=== PATIENT | female | born 1995 | race African-American/Black ===

== ENCOUNTER → 2016-11-01 | Outpatient (CLI) | payer MEDICAID ==
--- NOTE | 2016-11-01 09:36 | RADIOLOGY REPORT (SQ) ---
EXAM DESCRIPTION: KUB COMPLETED DATE/TIME: 11/01/2016 9:18 am REASON FOR STUDY: CONSTIPATION, UNSPECIFIED K59.00 CONSTIPATION, UNSPECIFIED COMPARISON: CT abdomen pelvis 09/20/2015 Abdominal ultrasound 07/20/2015 NUMBER OF VIEWS: One view. TECHNIQUE: Supine radiographic image of the abdomen acquired. LIMITATIONS: None. FINDINGS: BOWEL GAS PATTERN: Large amount of stool in the ascending and transverse colon. Otherwise unremarkable bowel gas pattern CALCIFICATIONS: No suspicious calcifications. SOFT TISSUES: No gross mass or suggestion of organomegaly. HARDWARE: Clips right upper quadrant post cholecystectomy BONES: No acute fracture. No worrisome bone lesions. OTHER: No other significant finding. IMPRESSION: Large amount of stool in the ascending and transverse colon. Otherwise unremarkable bow el gas pattern TECHNICAL DOCUMENTATION: JOB ID: [id number] Event [employer]- All Rights Reserved
== END ==
LOC: OD 09:07
PROVIDERS: ATTEND Physician Assistant
DX: K59.00 Constipation, unspecified (principal)
CPT/HCPCS: 74000

== ENCOUNTER 2017-08-29 16:49 | Emergency (ER) | payer MEDICAID ==
[2017-08-29 17:05] VITALS: BP 115/76
== END 2017-08-29 18:17 | disposition left against medical advice (07) ==
LOC: ER 16:49
DX: Z53.21 Procedure and treatment not carried out due to patient leaving prior to being seen by health care provider (principal)

== ENCOUNTER 2018-02-27 20:52 | Emergency (ER) | payer SELFPAY ==
[2018-02-27 21:02] VITALS: BP 118/76
[2018-02-27] MEDS ORDERED: IBUPROFEN 600 MG TABLET PO ONE (23:30)
--- NOTE | 2018-02-27 23:46 | ER Document Report ---
ED GI/ - General Chief Complaint: Abdominal Pain Stated Complaint: UPPER ABDOMINAL PAIN, TROUBLE BREATHING Time Seen by Provider: 02/27/18 23:25 Mode of Arrival: Ambulatory Information source: Patient TRAVEL OUTSIDE OF THE [place] IN LAST 30 DAYS: No - HPI Patient complains to provider of: Abdominal pain Onset: Yesterday Timing/Duration: Intermittent Quality of pain: Achy Severity at maximum: Moderate Severity in ED: Moderate Pain Level: 3 Location: RUQ Vaginal bleeding (Compared to normal period): None Associated symptoms: None Exacerbated by: Denies Relieved by: Denies Similar symptoms previously: No Recently seen / treated by doctor: Yes Notes: 02/28/18 00:37 Patient is a 23-year-old female presenting to the emergency room today complaining of 2-day history of right upper quadrant pain, she reports some nausea with an episode of vomiting yesterday, she denies a fever, no diarrhea, no dysuria or hematuria, she saw her primary care provider yesterday and was told that she had a very mild elevation of her liver enzymes, has a history of a cholecystectomy in 2016 - Related Data Allergies/Adverse Reactions: No Known Allergies Allergy (Unverified 06/07/15 08:09) Past Medical History - General Information source: Patient - Social History Smoking Status: Never Smoker Family History: Reviewed & Not Pertinent Patient has suicidal ideation: No Patient has homicidal ideation: No - Past Medical History Cardiac Medical History: Denies: Hx Coronary Artery Disease, Hx Heart Attack, Hx Hypertension Pulmonary Medical History: Denies: Hx Asthma, Hx Bronchitis, Hx COPD, Hx Pneumonia Neurological Medical History: Denies: Hx Cerebrovascular Accident, Hx Seizures Renal/ Medical History: Denies: Hx Peritoneal Dialysis Musculoskeletal Medical History: Denies Hx Arthritis Past Surgical History: Reports: Hx Cholecystectomy, Hx Tonsillectomy - Immunizations Hx Diphtheria, Pertussis, Tetanus Vaccination: Yes Review of Systems - Review of Systems Constitutional: No symptoms reported EENT: No symptoms reported Cardiovascular: No symptoms reported Respiratory: No symptoms reported Gastrointestinal: See HPI Genitourinary: No symptoms reported Female Genitourinary: No symptoms reported Musculoskeletal: No symptoms reported Skin: No symptoms reported Hematologic/Lymphatic: No symptoms reported Neurological/Psychological: No symptoms reported -: Yes All other systems reviewed and negative Physical Exam - Vital signs Vitals: Temp Pulse Resp BP Pulse Ox 98.8 F 78 18 118/76 100 02/27/18 20:59 02/27/18 20:59 02/27/18 20:59 02/27/18 20:59 02/27/18 20:59 Interpretation: Normal - General General appearance: Appears well, Alert - HEENT Head: Normocephalic, Atraumatic Eyes: Normal Pupils: PERRL - Respiratory Respiratory status: No respiratory distress Chest status: Nontender Breath sounds: Normal Chest palpation: Normal - Cardiovascular Rhythm: Regular Heart sounds: Normal auscultation Murmur: No - Abdominal Inspection: Normal Distension: No distension Bowel sounds: Normal Tenderness: Tender - Mild right upper quadrant tenderness Organomegaly: No organomegaly - Back Back: Normal, Nontender - Extremities General upper extremity: Normal inspection, Nontender, Normal color, Normal ROM , Normal temperature General lower extremity: Normal inspection, Nontender, Normal color, Normal ROM , Normal temperature, Normal weight bearing. No: Db's sign - Neurological Neuro grossly intact: Yes Cognition: Normal Orientation: AAOx4 [place] Coma Scale Eye Opening: Spontaneous [place] Coma Scale Verbal: Oriented Alex Coma Scale Motor: Obeys Commands [place] Coma Scale Total: 15 Speech: Normal Motor strength normal: LUE, RUE, LLE, RLE Sensory: Normal - Psychological Associated symptoms: Normal affect, Normal mood - Skin Skin Temperature: Warm Skin Moisture: Dry Skin Color: Normal Course - Re-evaluation Re-evalutation: 02/28/18 00:56 Notified by nursing staff that patient eloped from the department prior to receiving her results - Vital Signs Vital signs: Temp Pulse Resp BP Pulse Ox 98.8 F 78 18 118/76 100 02/27/18 20:59 02/27/18 20:59 02/27/18 20:59 02/27/18 20:59 02/27/18 20:59 - Laboratory Result Diagrams: 02/27/18 21:42 02/27/18 21:42 Laboratory results interpreted by me: 02/27/18 02/27/18 02/27/18 21:42 21:42 21:42 Hgb 9.5 L Hct 28.6 L MCV 56 L MCH 18.6 L RDW 45.9 H Plt Count 556 H Eosinophils % (Manual) 10 H Metamyelocytes % 1 H Absolute Eos (Manual) 0.8 H Creatinine 0.47 L Total Bilirubin 2.3 H Direct Bilirubin 0.7 H AST 52 H ALT 53 H Urine Blood SMALL H Urine Urobilinogen 4.0 H Ur Leukocyte Esterase MODERATE H Discharge - Discharge Clinical Impression: Abdominal pain Qualifiers: Abdominal location: right upper quadrant Qualified Code(s): R10.11 - Right upper quadrant pain Disposition: ELOPED Referrals: AUGUSTO NIXON MD [Primary Care Provider] - Follow up as needed
[2018-02-27 23:52] LABS: HEMATOCRIT 28.6 % (36.0-47.0); HEMOGLOBIN 9.5 g/dL (12.0-15.5); MEAN CORPUSCULAR HEMOGLOBIN 18.6 pg (27.0-33.4); MEAN CORPUSCULAR HGB CONC 33.3 g/dL (32.0-36.0); PLATELET COUNT 556 10^3/uL (150-450); RED BLOOD COUNT 5.12 10^6/uL (3.72-5.28); WHITE BLOOD COUNT 7.9 10^3/uL (4.0-10.5)
[2018-02-27 23:54] LABS: RED CELL DISTRIBUTION WIDTH 45.9 % (11.5-14.0)
[2018-02-28 00:12] LABS: ABSOLUTE LYMPHOCYTES# (MANUAL) 2.1 10^3/uL (0.5-4.7); ABSOLUTE MONOCYTES # (MANUAL) 0.3 10^3/uL (0.1-1.4); ABSOLUTE NEUTROPHILS# (MANUAL) 4.7 10^3/uL (1.7-8.2); BASOPHILS % (MANUAL) 0 % (0-2); EOSINOPHILS % (MANUAL) 10 % (0-6); LYMPHOCYTES % (MANUAL) 24 % (13-45); METAMYELOCYTES % (MANUAL) 1 % (0); MONOCYTES % (MANUAL) 4 % (3-13); SEGMENTED NEUTROPHILS % (MAN) 58 % (42-78); TOTAL CELLS COUNTED 100
[2018-02-28 00:15] LABS: ANISOCYTOSIS 4+; APPEARANCE,URINE CLEAR; BILIRUBIN,URINE NEGATIVE (NEGATIVE); COLOR,URINE YELLOW; GLUCOSE, URINE NEGATIVE (NEGATIVE); HYPOCHROMASIA 1+; KETONES,URINE NEGATIVE (NEGATIVE); LEUKOCYTE ESTERASE,URINE MODERATE (NEGATIVE); MEAN CORPUSCULAR VOLUME 56 fl (80-97); NITRITE,URINE NEGATIVE (NEGATIVE); PLATELET COMMENT INCREASED; PLATELET LARGE PRESENT; POIKILOCYTOSIS 4+; POLYCHROMASIA SLIGHT; PROTEIN,URINE NEGATIVE (NEGATIVE); SCHISTOCYTES SLIGHT; TEAR DROP CELLS 1+; TOXIC VACUOLATION PRESENT; URINE SPECIFIC GRAVITY 1.009
[2018-02-28 00:16] LABS: OVALOCYTES 4+
[2018-02-28 00:48] LABS: ALANINE AMINOTRANSFERASE 53 U/L (9-52); ALBUMIN 4.3 g/dL (3.5-5.0); ALKALINE PHOSPHATASE 108 U/L (38-126); ANION GAP 11 (5-19); ASPARTATE AMINO TRANSFERASE 52 U/L (14-36); BILIRUBIN,DIRECT 0.7 mg/dL (0.0-0.4); BILIRUBIN,TOTAL 2.3 mg/dL (0.2-1.3); BLOOD UREA NITROGEN 7 mg/dL (7-20); CALCIUM 9.4 mg/dL (8.4-10.2); CARBON DIOXIDE 24 mmol/L (22-30); CHLORIDE 105 mmol/L (98-107); GLUCOSE 92 mg/dL (75-110); LIPASE 101.3 U/L (23-300); POTASSIUM 3.8 mmol/L (3.6-5.0); SODIUM 139.6 mmol/L (137-145); TOTAL PROTEIN 7.7 g/dL (6.3-8.2)
[2018-02-28 13:34] LABS: PATH REVIEW PATHOLOGIST REVIEWED
== END 2018-02-27 23:30 | disposition left against medical advice (07) ==
LOC: ER 20:52
DX: R10.11 Right upper quadrant pain (principal); R11.2 Nausea with vomiting, unspecified; Z90.49 Acquired absence of other specified parts of digestive tract
CPT/HCPCS: 36415; 80053; 81001; 81025; 83690; 85025; 99281

== ENCOUNTER 2018-04-07 19:43 | Emergency (ER) | payer OTHER, BC ==
[2018-04-07 21:02] VITALS: BP 115/59
[2018-04-07] MEDS ORDERED: LIDOCAINE 5% (700 MG) TRANSDERMAL ADH..PATCH TP ONE (22:47)
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
== END 2018-04-07 23:25 | disposition home or self-care (01) ==
LOC: ER 19:43
DX: S13.4XXA Sprain of ligaments of cervical spine, initial encounter (principal); M25.552 Pain in left hip; M54.2 Cervicalgia; R29.898 Other symptoms and signs involving the musculoskeletal system; V43.52XA Car driver injured in collision with other type car in traffic accident, initial encounter
CPT/HCPCS: 99283

== ENCOUNTER 2019-01-29 06:02 | Inpatient (IN) | payer MEDICAID ==
[2019-01-30 10:59] LABS: ABSOLUTE EOSINOPHILS # (AUTO) 0.1 10^3/uL (0.0-0.6); ABSOLUTE LYMPHOCYTES (AUTO) 1.4 10^3/uL (0.5-4.7); ABSOLUTE MONOCYTES (AUTO) 0.7 10^3/uL (0.1-1.4); ABSOLUTE NEUT (AUTO) 7.5 10^3/uL (1.7-8.2); BASOPHILS % (AUTO) 0.3 % (0-2); HEMATOCRIT 31.7 % (36.0-47.0); HEMOGLOBIN 10.8 g/dL (12.0-15.5); LYMPHOCYTES % (AUTO) 14.9 % (13-45); MEAN CORPUSCULAR HEMOGLOBIN 24.8 pg (27.0-33.4); MEAN CORPUSCULAR HGB CONC 34.1 g/dL (32.0-36.0); MEAN CORPUSCULAR VOLUME 73 fl (80-97); MONOCYTES % (AUTO) 6.8 % (3-13); PLATELET COUNT 308 10^3/uL (150-450); RED BLOOD COUNT 4.35 10^6/uL (3.72-5.28); TOTAL CELLS COUNTED % (AUTO) 100 %; WHITE BLOOD COUNT 9.7 10^3/uL (4.0-10.5)
[2019-01-30 11:31] LABS: RED CELL DISTRIBUTION WIDTH 42.2 % (11.5-14.0)
[2019-01-30 11:32] LABS: ANISOCYTOSIS 4+; POIKILOCYTOSIS 4+
[2019-01-30 11:33] LABS: OVALOCYTES 4+; PLATELET COMMENT ADEQUATE; SCHISTOCYTES SLIGHT; TEAR DROP CELLS 1+
[2019-01-30 11:34] LABS: PLATELET LARGE PRESENT
[2019-01-30 12:09] LABS: APPEARANCE,URINE SLIGHTLY-CLOUDY; BILIRUBIN,URINE NEGATIVE (NEGATIVE); COLOR,URINE AMBER; GLUCOSE, URINE NEGATIVE (NEGATIVE); KETONES,URINE TRACE mg/dL (NEGATIVE); LEUKOCYTE ESTERASE,URINE LARGE (NEGATIVE); NITRITE,URINE NEGATIVE (NEGATIVE); PROTEIN,URINE NEGATIVE (NEGATIVE); URINE SPECIFIC GRAVITY 1.013
[2019-01-30 12:28] LABS: URINE AMPHETAMINES SCREEN NEGATIVE; URINE BARBITURATES SCREEN NEGATIVE; URINE BENZODIAZEPINES SCREEN NEGATIVE; URINE COCAINE SCREEN NEGATIVE; URINE MARIJUANA (THC) SCREEN NEGATIVE; URINE METHADONE SCREEN NEGATIVE; URINE PHENCYCLIDINE SCREEN NEGATIVE
[2019-02-02] MEDS ORDERED: CEFAZOLIN SODIUM 2 GM in DEXTROSE 5%-WATER 100 ML IV PRN (05:00)
[2019-02-02] MEDS ORDERED: RINGERS SOLUTION,LACTATED 1,000 ML IV PRN ×2 (05:00→10:38)
[2019-02-02] MEDS ORDERED: LACTATED RINGERS 1000 ML IV PRN (05:00)
[2019-02-02] MEDS ORDERED: LIDOCAINE 0.5% INJ-PF (5 MG/ML) 50 ML SDV SUBCUT PRN (05:00)
[2019-02-02] MEDS ORDERED: OXYTOCIN 10 UNIT/ML VIAL ONE (09:04)
[2019-02-02] MEDS ORDERED: ONDANSETRON HCL INJ/PF 4 MG/2 ML SDV ONE (09:04)
[2019-02-02] MEDS ORDERED: FENTANYL CITRATE INJ/PF 100 MCG/2 ML AMPUL ONE (09:04)
[2019-02-02] MEDS ORDERED: ACETAMINOPHEN 1,000 MG/100 ML RTUPB IV ONE (09:04)
[2019-02-02] MEDS ORDERED: KETOROLAC TROMETHAMINE INJ/PF 30 MG/1 ML SDV ONE (09:04)
[2019-02-02] MEDS ORDERED: SIMETHICONE 80 MG TAB.CHEW PO PRN (10:38)
[2019-02-02] MEDS ORDERED: PROMETHAZINE HCL INJ 25 MG/1 ML VIAL IV PRN (10:38)
[2019-02-02] MEDS ORDERED: OXYTOCIN/NORMAL SALINE 20 UNIT/1,000 ML RTUINJ IV PRN (10:38)
[2019-02-02] MEDS ORDERED: MEASLES,MUMPS&RUBELLA VACC/PF 0.5 ML VIAL SUBCUT PRN (10:38)
[2019-02-02] MEDS ORDERED: ACETAMINOPHEN 325 MG TABLET PO PRN (10:38)
[2019-02-02] MEDS ORDERED: OXYCODONE-ACETAMINOPHEN 5-325 MG TABLET PO PRN (10:38)
[2019-02-02] MEDS ORDERED: DIPH/PERTUSS(ACELL)/TETANUS VAC/PF 0.5 ML SYR (>=10YO) IM PRN (10:38)
[2019-02-02] MEDS ORDERED: HYDROMORPHONE HCL INJ/PF 2 MG/ML AMPULE IV PRN (10:38)
--- NOTE | 2019-02-02 10:40 | PDOC DELIVERY SUMMARY ---
Delivery Summary - Maternal Hx : I HAILEY: 01/30/19 Ruptured Membranes: AROM Fluids: Clear - Delivery Presentation: Vertex Support Person Present: Yes Location: LD : Scheduled Placenta: Within Normal Limits Delivery of Placenta Date: 02/02/19 Delivery of Placenta Time: 10:05 - Infant Assess and Care Baby 1 Delivery of Infant Date: 02/02/19 Delivery of Infant Time: 10:04 Preprinted Number On Band: [id number] Skin to Skin: Yes Skin to Skin (Mins): 6 - Delivery Personnel MD: PATRICIA MCDONALD
--- NOTE | 2019-02-02 10:43 | Operative Report ---
Operative Report DATE OF SURGERY: 02/02/19 PREOPERATIVE DIAGNOSIS: CPD macrosomia POSTOPERATIVE DIAGNOSIS: Same plus baby is direct OP OPERATION: Primary via low transverse uterine incision SURGEON: PATRICIA MCDONALD ANESTHESIA: Spinal TISSUE REMOVED OR ALTERED: Placenta COMPLICATIONS: None ESTIMATED BLOOD LOSS: 400 INTRAOPERATIVE FINDINGS: Baby was 9 pounds 7 ounces directly OP PROCEDURE: Patient was taken to the OR and placed in supine position after her spinal anesthesia. She is prepared and draped in sterile fashion. Edmond was placed for drainage of the bladder. Low transverse incision was made and carried down the level of the fascia. The fascial incision was made with knife and extended bilaterally with curved Issa scissors. The fascia was off the rectus muscles using sharp and blunt dissection. The rectus muscles are in the midline. The peritoneum was entered without incident. Bladder blade was placed in uterine segment was identified. A low transverse incision was made creating a bladder flap. Bladder blade was placed low transverse uterine incision was made with the knife and extended with fingertips. The baby was delivered with some fundal pressure. Mouth and nose were suctioned free. The cord is doubly clamped and cut. Baby is passed off to the utility accounts director in attendance. The placenta was manually extracted with trailing membranes. The uterus was externalized wrapped in a moist lap sponge. Uterine contents wiped free. Uterus was closed with a running locking layer of 0 chromic suture using the second layer to imbricate the first completing a double layer closure of the uterus. The serosa was closed with a running 2-0 chromic stitch. The pelvis was irrigated and suctioned free of fluid the uterus was replaced in the abdomen. The abdominal wall peritoneum was closed with running 2-0 chromic stitch. Fascia was closed with a running 0 Vicryl in 2 segments. Antonietta's layer was brought together with 0 plain gut stitch and the skin was closed with running subcuticular 4-0 undyed Vicryl stitch. The wound was dressed mother and baby did well.
[2019-02-02] MEDS ORDERED: DIPHENHYDRAMINE HCL 50 MG/ML VIAL ONE (11:17)
[2019-02-02 11:27] LABS: HEMATOCRIT 27.2 % (36.0-47.0); HEMOGLOBIN 9.2 g/dL (12.0-15.5); MEAN CORPUSCULAR HEMOGLOBIN 24.7 pg (27.0-33.4); MEAN CORPUSCULAR VOLUME 73 fl (80-97); PLATELET COUNT 306 10^3/uL (150-450); RED BLOOD COUNT 3.74 10^6/uL (3.72-5.28); WHITE BLOOD COUNT 8.9 10^3/uL (4.0-10.5)
[2019-02-02] MEDS ORDERED: DIPHENHYDRAMINE HCL 50 MG/ML VIAL IV ONE ×2 (11:45→13:00)
[2019-02-02 12:27] LABS: RED CELL DISTRIBUTION WIDTH 43.4 % (11.5-14.0)
[2019-02-02] MEDS: OXYCODONE-ACETAMINOPHEN 5-325 MG TABLET PO PRN (13:57)
[2019-02-02] MEDS: DOCUSATE SODIUM 100 MG CAPSULE PO SCH (18:19)
[2019-02-02] MEDS: KETOROLAC TROMETHAMINE INJ/PF 30 MG/1 ML SDV IV SCH (18:19)
[2019-02-03] MEDS: KETOROLAC TROMETHAMINE INJ/PF 30 MG/1 ML SDV IV SCH (02:39)
[2019-02-03] MEDS: OXYCODONE-ACETAMINOPHEN 5-325 MG TABLET PO PRN ×2 (06:13→14:00)
[2019-02-03] MEDS: DOCUSATE SODIUM 100 MG CAPSULE PO SCH ×2 (09:12→17:56)
[2019-02-03] MEDS: PRENATAL VITAMIN W DHA CAPSULE PO SCH (09:12)
[2019-02-03 10:18] LABS: HEMATOCRIT 22.8 % (36.0-47.0); MEAN CORPUSCULAR HGB CONC 33.8 g/dL (32.0-36.0); MEAN CORPUSCULAR VOLUME 74 fl (80-97); PLATELET COUNT 290 10^3/uL (150-450); RED BLOOD COUNT 3.09 10^6/uL (3.72-5.28); WHITE BLOOD COUNT 16.9 10^3/uL (4.0-10.5)
[2019-02-03 10:32] LABS: RED CELL DISTRIBUTION WIDTH 42.4 % (11.5-14.0)
[2019-02-03 10:34] LABS: HEMOGLOBIN 7.7 g/dL (12.0-15.5)
[2019-02-03] MEDS ORDERED: PROMETHAZINE HCL 25 MG TABLET PO ONE (11:30)
--- NOTE | 2019-02-03 12:58 | PDOC PROGRESS REPORT ---
Subjective-OB Progress Note for:: 02/03/19 Subjective: denies sx of anemia, states she is passing gas, c/o nausea. states bleeding and pain doing good Physical Exam (OB) Vital Signs: Temp Pulse Resp BP Pulse Ox 98.0 F 80 18 100/49 L 100 02/03/19 11:20 02/03/19 11:20 02/03/19 11:20 02/03/19 11:20 02/03/19 11:20 Intake & Output 02/02/19 02/03/19 02/04/19 06:59 06:59 06:59 Intake Total 200 Output Total 1750 Balance -1550 Weight 86.183 kg - Dressing Removed: No Incision: Dressing Closure Type: op site - Lochia Lochia Amount: Scant < 10 ml Lochia Color: Rubra/Red - Abdomen Description: Tender, Soft, Round Hernia Present: No Fundal Description: Firm Fundal Height: u/u - u/2 - Extremities Lower extremities: Db's sign - neg Calf: Normal, Nontender Objective-Diagnostic Laboratory: 02/03/19 09:15 02/03/19 02/03/19 06:44 09:15 WBC Cancelled 16.9 H RBC Cancelled 3.09 L Hgb Cancelled 7.7 L Hct Cancelled 22.8 L MCV Cancelled 74 L MCH Cancelled 25.0 L MCHC Cancelled 33.8 RDW Cancelled 42.4 H Plt Count Cancelled 290 Assessment and Plan(PN) - Assessment and Plan (1) Status post primary low transverse section Is this a current diagnosis for this admission?: Yes - Time Spent with Patient Time with patient: Less than 15 minutes Medications reviewed and adjusted accordingly: Yes - Disposition Anticipated Discharge: Home Within: within 48 hours
[2019-02-03] MEDS: IBUPROFEN 800 MG TABLET PO SCH ×2 (17:55→23:13)
[2019-02-04 01:22] LABS: HEMATOCRIT 20.2 % (36.0-47.0); MEAN CORPUSCULAR HGB CONC 32.5 g/dL (32.0-36.0); MEAN CORPUSCULAR VOLUME 74 fl (80-97); PLATELET COUNT 314 10^3/uL (150-450); RED BLOOD COUNT 2.74 10^6/uL (3.72-5.28); WHITE BLOOD COUNT 16.1 10^3/uL (4.0-10.5)
[2019-02-04 01:42] LABS: HEMOGLOBIN 6.6 g/dL (12.0-15.5); RED CELL DISTRIBUTION WIDTH 42.8 % (11.5-14.0)
[2019-02-04] MEDS ORDERED: AMPICILLIN SOD/SULBACTAM 3 GM VIAL IV SCH (06:00)
[2019-02-04] MEDS: IBUPROFEN 800 MG TABLET PO SCH ×4 (06:20→23:19)
[2019-02-04] MEDS: PRENATAL VITAMIN W DHA CAPSULE PO SCH (10:14)
[2019-02-04] MEDS: DOCUSATE SODIUM 100 MG CAPSULE PO SCH ×2 (10:14→17:19)
--- NOTE | 2019-02-04 13:10 | PDOC PROGRESS REPORT ---
Subjective-OB Progress Note for:: 02/04/19 Subjective: 24yo G1 now P1 s/p primary ppd1. Pt. ambulating, and voiding without difficulty. Reports pain well tolerated with medication. No concerns at this time Physical Exam (OB) Vital Signs: Temp Pulse Resp BP Pulse Ox 99.1 F 97 16 116/66 100 02/04/19 11:17 02/04/19 11:17 02/04/19 11:17 02/04/19 11:17 02/04/19 11:17 Intake & Output 02/03/19 02/04/19 02/05/19 06:59 06:59 06:59 Intake Total 200 600 600 Output Total 1750 2700 Balance -1550 -2100 600 Weight 86.183 kg - General General Appearance: Appears well In distress: None - PIH/Pre-Eclampsia DTR's: 1 + Clonus: Negative Headache: Absent Epigastric Pain: No Visual Changes: No - Dressing Removed: No Incision: Dressing Closure Type: op site - Lochia Lochia Amount: Scant < 10 ml Lochia Color: Rubra/Red - Abdomen Description: Tender, Soft, Round Hernia Present: No Fundal Description: Firm, Midline Fundal Height: u/u - u/2 - Respiratory Respiratory Status: No respiratory distress - Extremities Upper extremity: Normal inspection Lower extremities: Normal inspection - Neurological Cognition: Normal Orientation: AAOx4 - Psychological Associated symptoms: Normal affect, Normal mood Objective-Diagnostic Laboratory: 02/04/19 01:11 02/01/19 02/04/19 17:09 01:11 WBC 16.1 H RBC 2.74 L Hgb 6.6 L Hct 20.2 L MCV 74 L MCH 24.0 L MCHC 32.5 RDW 42.8 H Plt Count 314 Blood Type O POSITIVE Antibody Screen NEGATIVE Assessment and Plan(PN) - Assessment and Plan (1) Acute blood loss anemia Is this a current diagnosis for this admission?: Yes Plan: second unit of blood just finished infusion. Will continue to monitor (2) hemorrhage Qualifiers: hemorrhage type: unspecified Qualified Code(s): O72.1 - Other immediate hemorrhage Is this a current diagnosis for this admission?: Yes Plan: blood transfusion completed, increase dietary iron and FeSO4 BID. Continue to monitor (3) Blood transfusion during current hospitalisation Is this a current diagnosis for this admission?: Yes Plan: completed will obtain repeat CBC this afternoon (4) Status post primary low transverse section Is this a current diagnosis for this admission?: Yes Plan: routine pp care - Time Spent with Patient Time with patient: Less than 15 minutes Medications reviewed and adjusted accordingly: Yes - Disposition Anticipated Discharge: Home Within: within 24 hours
[2019-02-04] MEDS: OXYCODONE-ACETAMINOPHEN 5-325 MG TABLET PO PRN (16:04)
[2019-02-04 16:20] LABS: HEMATOCRIT 25.7 % (36.0-47.0); MEAN CORPUSCULAR HEMOGLOBIN 26.2 pg (27.0-33.4); MEAN CORPUSCULAR HGB CONC 33.8 g/dL (32.0-36.0); MEAN CORPUSCULAR VOLUME 77 fl (80-97); PLATELET COUNT 410 10^3/uL (150-450); RED BLOOD COUNT 3.32 10^6/uL (3.72-5.28); RED CELL DISTRIBUTION WIDTH 37.3 % (11.5-14.0)
[2019-02-04 16:42] LABS: HEMOGLOBIN 8.7 g/dL (12.0-15.5)
[2019-02-05] MEDS: IBUPROFEN 800 MG TABLET PO SCH ×2 (06:01→11:54)
[2019-02-05] MEDS: OXYCODONE-ACETAMINOPHEN 5-325 MG TABLET PO PRN (09:59)
[2019-02-05] MEDS: PRENATAL VITAMIN W DHA CAPSULE PO SCH (09:59)
[2019-02-05] MEDS: DOCUSATE SODIUM 100 MG CAPSULE PO SCH (09:59)
--- NOTE | 2019-02-05 11:25 | PDOC PROGRESS REPORT ---
Subjective-OB Progress Note for:: 02/05/19 Subjective: Ready to go home. Physical Exam (OB) Vital Signs: Temp Pulse Resp BP Pulse Ox 98.1 F 81 16 103/53 L 100 02/05/19 07:27 02/05/19 07:27 02/05/19 07:27 02/05/19 07:27 02/05/19 07:27 Intake & Output 02/04/19 02/05/19 02/06/19 06:59 06:59 06:59 Intake Total 600 600 Output Total 2700 Balance -2100 600 - PIH/Pre-Eclampsia DTR's: 1 + Clonus: Negative Headache: Absent Epigastric Pain: No Visual Changes: No - Dressing Removed: No Incision: Dressing Closure Type: op site - Lochia Lochia Amount: Scant < 10 ml Lochia Color: Rubra/Red - Abdomen Description: Soft, Round Hernia Present: No Bowel Sounds: Normoactive Flatus Presence: Present Stool: No Fundal Description: Firm, Midline Fundal Height: u/u - u/2 Objective-Diagnostic Laboratory: 02/04/19 15:59 02/04/19 15:59 WBC 18.0 H RBC 3.32 L Hgb 8.7 L D Hct 25.7 L MCV 77 L MCH 26.2 L MCHC 33.8 RDW 37.3 H Plt Count 410 Assessment and Plan(PN) - Time Spent with Patient Medications reviewed and adjusted accordingly: Yes - Disposition Anticipated Discharge: Home
--- NOTE | 2019-02-05 11:33 | PDOC DISCHARGE SUMMARY ---
Impression - Admit/DC Date/PCP Admission Date/Primary Care Provider: 02/02/19 06:32 PATRICIA MCDONALD MD Discharge Date: 02/05/19 - Discharge Diagnosis (1) Acute blood loss anemia Is this a current diagnosis for this admission?: Yes (2) Blood transfusion during current hospitalisation Is this a current diagnosis for this admission?: Yes (3) hemorrhage Is this a current diagnosis for this admission?: Yes (4) Status post primary low transverse section Is this a current diagnosis for this admission?: Yes - Additional Information Discharge Diet: Regular Discharge Activity: Activity As Tolerated, Balance Activity w/Rest, No Lifting Over 10 Pounds, No Lifting/Push/Pulling, Pelvic Rest, Slowly Increase Activity, No tub bath Referrals: PATRICIA MCDONALD MD [Primary Care Provider] - 02/11/19 11:00 am (PLEASE CALL THE OFFICE FOR ANY QUESTIONS OR CONCERN.) Prescriptions: Oxycodone HCl/Acetaminophen [Percocet 5-325 mg Tablet] 1 tab PO Q4HP PRN #20 tablet PRN Reason: Docusate Sodium [Colace 100 mg Capsule] 100 mg PO BID #30 capsule Ferrous Sulfate 325 mg PO BID #60 tablet. Ibuprofen [Motrin 800 mg Tablet] 800 mg PO Q6 #30 tablet Home Medications: Folic Acid 1 cap PO DAILY 01/30/19 Prenat 115/Iron Fum/Folic/Dss [ 19 Tablet] 1 tab PO DAILY 01/30/19 Docusate Sodium [Colace 100 mg Capsule] 100 mg PO BID #30 capsule 02/05/19 Ferrous Sulfate 325 mg PO BID #60 tablet. 02/05/19 Ibuprofen [Motrin 800 mg Tablet] 800 mg PO Q6 #30 tablet 02/05/19 Oxycodone HCl/Acetaminophen [Percocet 5-325 mg Tablet] 1 tab PO Q4HP PRN #20 tablet 02/05/19 Additional Information: RTC 1 wk at [facility]. HPI Reason(s) for Admission: Onset of Labor, Ceasarean Section-Primary, Obstetric Complications Procedures: Ultrasound Intrapartum Procedure(s): : Low Cervical, Transverse Results Laboratory Results: WBC 18.0 10^3/uL (4.0-10.5) H 02/04/19 15:59 RBC 3.32 10^6/uL (3.72-5.28) L 02/04/19 15:59 Hgb 8.7 g/dL (12.0-15.5) L D 02/04/19 15:59 Hct 25.7 % (36.0-47.0) L 02/04/19 15:59 MCV 77 fl (80-97) L 02/04/19 15:59 MCH 26.2 pg (27.0-33.4) L 02/04/19 15:59 MCHC 33.8 g/dL (32.0-36.0) 02/04/19 15:59 RDW 37.3 % (11.5-14.0) H 02/04/19 15:59 Plt Count 410 10^3/uL (150-450) 02/04/19 15:59 Lymph % (Auto) 14.9 % (13-45) 01/30/19 10:27 Morrill % (Auto) 6.8 % (3-13) 01/30/19 10:27 Eos % (Auto) 1.0 % (0-6) 01/30/19 10:27 Baso % (Auto) 0.3 % (0-2) 01/30/19 10:27 Absolute Neuts (auto) 7.5 10^3/uL (1.7-8.2) 01/30/19 10:27 Absolute Lymphs (auto) 1.4 10^3/uL (0.5-4.7) 01/30/19 10:27 Absolute Monos (auto) 0.7 10^3/uL (0.1-1.4) 01/30/19 10:27 Absolute Eos (auto) 0.1 10^3/uL (0.0-0.6) 01/30/19 10:27 Absolute Basos (auto) 0.0 10^3/uL (0.0-0.2) 01/30/19 10:27 Seg Neutrophils % 77.0 % (42-78) 01/30/19 10:27 Platelet Estimate Cancelled 02/03/19 06:44 Large Platelets PRESENT 01/30/19 10:27 Platelet Comment ADEQUATE 01/30/19 10:27 Poikilocytosis 4+ 01/30/19 10:27 Anisocytosis 4+ 01/30/19 10:27 Microcytosis 2+ 01/30/19 10:27 Tear Drop Cells 1+ 01/30/19 10:27 Ovalocytes 4+ 01/30/19 10:27 Schistocytes SLIGHT 01/30/19 10:27 Urine Color CLARA 01/30/19 10:30 Urine Appearance SLIGHTLY-CLOUDY 01/30/19 10:30 Urine pH 7.0 (5.0-9.0) 01/30/19 10:30 Ur Specific [place] 1.013 01/30/19 10:30 Urine Protein NEGATIVE mg/dL (NEGATIVE) 01/30/19 10:30 Urine Glucose (UA) NEGATIVE mg/dL (NEGATIVE) 01/30/19 10:30 Urine Ketones TRACE mg/dL (NEGATIVE) H 01/30/19 10:30 Urine Blood SMALL (NEGATIVE) H 01/30/19 10:30 Urine Nitrite NEGATIVE (NEGATIVE) 01/30/19 10:30 Urine Bilirubin NEGATIVE (NEGATIVE) 01/30/19 10:30 Urine Urobilinogen 4.0 mg/dL (<2.0) H 01/30/19 10:30 Ur Leukocyte Esterase LARGE (NEGATIVE) H 01/30/19 10:30 Urine WBC (Auto) 35 /HPF 01/30/19 10:30 Urine RBC (Auto) 14 /HPF 01/30/19 10:30 Squamous Epi Cells Auto 2 /HPF 01/30/19 10:30 Urine Mucus (Auto) RARE /LPF 01/30/19 10:30 Urine Ascorbic Acid NEGATIVE (NEGATIVE) 01/30/19 10:30 Urine Opiates Screen NEGATIVE 01/30/19 10:30 Urine Methadone Screen NEGATIVE 01/30/19 10:30 Ur Barbiturates Screen NEGATIVE 01/30/19 10:30 Ur Phencyclidine Scrn NEGATIVE 01/30/19 10:30 Ur Amphetamines Screen NEGATIVE 01/30/19 10:30 U Benzodiazepines Scrn NEGATIVE 01/30/19 10:30 Urine Cocaine Screen NEGATIVE 01/30/19 10:30 U Marijuana (THC) Screen NEGATIVE 01/30/19 10:30 Slides for Path Review Cancelled 02/03/19 06:44 Blood Type O POSITIVE 02/01/19 17:09 Blood Type Confirm O POSITIVE 02/01/19 17:09 Antibody Screen NEGATIVE 02/01/19 17:09 Crossmatch See Detail 02/01/19 17:09 Plan Plan of Treatment: RTC [facility] 1 wk from surgery. Time Spent: Less than 30 Minutes
[2019-02-05 12:51] LABS: HEMATOCRIT 26.1 % (36.0-47.0); HEMOGLOBIN 8.6 g/dL (12.0-15.5); MEAN CORPUSCULAR HEMOGLOBIN 25.7 pg (27.0-33.4); MEAN CORPUSCULAR HGB CONC 33.1 g/dL (32.0-36.0); MEAN CORPUSCULAR VOLUME 77 fl (80-97); PLATELET COUNT 260 10^3/uL (150-450); RED BLOOD COUNT 3.37 10^6/uL (3.72-5.28); RED CELL DISTRIBUTION WIDTH 37.2 % (11.5-14.0); WHITE BLOOD COUNT 15.5 10^3/uL (4.0-10.5)
[2019-02-05 13:21] VITALS: BP 102/57
== END 2019-02-05 14:48 | disposition home or self-care (01) | DRG 787 ==
LOC: 2S 02-02 06:32
PROVIDERS: ADMIT Obstetrics & Gynecology; ATTEND Obstetrics & Gynecology
PROC: 10D00Z1 Extraction of Products of Conception, Low, Open Approach (ICD-10-PCS; principal; 2019-02-02 09:30)
PROC: 30233N1 Transfusion of Nonautologous Red Blood Cells into Peripheral Vein, Percutaneous Approach (ICD-10-PCS; 2019-02-04)
DX: O33.5XX0 Maternal care for disproportion due to unusually large fetus, not applicable or unspecified (principal); O72.1 Other immediate postpartum hemorrhage; D62 Acute posthemorrhagic anemia; O99.02 Anemia complicating childbirth; Z37.0 Single live birth; Z14.8 Genetic carrier of other disease; Z3A.40 40 weeks gestation of pregnancy
CPT/HCPCS: 1961; 36415; 36430; 59025; 80307; 81001; 85025; 85027; 86850; 86900; 86901; 86920; 94799; J0131; J0690; J1200; J1885; J2405; J2590; J3010; J3490; J7060; J7120; P9016

== ENCOUNTER 2019-03-11 21:07 | Emergency (ER) | payer MEDICAID ==
[2019-03-11 21:25] VITALS: BP 104/66
[2019-03-11] MEDS ORDERED: IBUPROFEN 800 MG TABLET PO ONE (21:44)
--- NOTE | 2019-03-11 21:46 | ER Document Report ---
ED Medical Screen (RME) - General Chief Complaint: Abdominal Pain Stated Complaint: RIGHT SIDE ABDOMINAL PAIN Time Seen by Provider: 03/11/19 21:41 Primary Care Provider: MIRNA RIVERA FNP-C [Primary Care Provider] - Follow up as needed Mode of Arrival: Ambulatory Information source: Patient Notes: pt presents to the ED for c/o right upper pain/side pain that just started today. denies f/n/v/d, denies pain with void, eyes trauma. Denies history of kidney stones. Patient reports that just started today. Reports she is 2 months . I have greeted and performed a rapid initial assessment of this patient. A comprehensive ED assessment and evaluation of the patient, analysis of test results and completion of the medical decision making process will be conducted by additional ED providers. Dictation of this chart was performed using voice recognition software; therefore, there may be some unintended grammatical errors. TRAVEL OUTSIDE OF THE [place] IN LAST 30 DAYS: No - Related Data Allergies/Adverse Reactions: No Known Allergies Allergy (Unverified 01/30/19 11:27) Home Medications: iron pills Past Medical History - Social History Frequency of alcohol use: None Drug Abuse: None - Past Medical History Cardiac Medical History: Denies: Hx Coronary Artery Disease, Hx Heart Attack, Hx Hypertension Pulmonary Medical History: Denies: Hx Asthma, Hx Bronchitis, Hx COPD, Hx Pneumonia Neurological Medical History: Denies: Hx Cerebrovascular Accident, Hx Seizures Renal/ Medical History: Denies: Hx Peritoneal Dialysis GI Medical History: Reports: Hx Gastroesophageal Reflux Disease - tums. Denies: Hx Hiatal Hernia, Hx Ulcer Musculoskeltal Medical History: Denies Hx Arthritis Infectious Medical History: Denies: Hx HIV Past Surgical History: Reports: Hx Cholecystectomy, Hx Tonsillectomy - Immunizations Hx Diphtheria, Pertussis, Tetanus Vaccination: Yes Physical Exam - Vital signs Vitals: Temp Pulse Resp BP Pulse Ox 98.1 F 71 16 104/66 100 03/11/19 21:19 03/11/19 21:19 03/11/19 21:19 03/11/19 21:19 03/11/19 21:19 Course - Vital Signs Vital signs: Temp Pulse Resp BP Pulse Ox 98.1 F 71 16 104/66 100 03/11/19 21:19 03/11/19 21:19 03/11/19 21:19 03/11/19 21:19 03/11/19 21:19 Doctor's Discharge - Discharge Referrals: MIRNA RIVERA, DETECTIVE SUPERVISOR-C [Primary Care Provider] - Follow up as needed
[2019-03-11 22:28] LABS: ABSOLUTE BASOPHILS # (AUTO) 0.1 10^3/uL (0.0-0.2); ABSOLUTE EOSINOPHILS # (AUTO) 0.4 10^3/uL (0.0-0.6); ABSOLUTE MONOCYTES (AUTO) 0.4 10^3/uL (0.1-1.4); ABSOLUTE NEUT (AUTO) 6.7 10^3/uL (1.7-8.2); BASOPHILS % (AUTO) 0.6 % (0-2); EOSINOPHILS % (AUTO) 3.6 % (0-6); HEMATOCRIT 30.1 % (36.0-47.0); HEMOGLOBIN 9.8 g/dL (12.0-15.5); LYMPHOCYTES % (AUTO) 28.5 % (13-45); MEAN CORPUSCULAR HGB CONC 32.5 g/dL (32.0-36.0); MONOCYTES % (AUTO) 3.5 % (3-13); PLATELET COUNT 697 10^3/uL (150-450); RED BLOOD COUNT 4.65 10^6/uL (3.72-5.28); SEGMENTED NEUTROPHILS % (AUTO) 63.8 % (42-78); TOTAL CELLS COUNTED % (AUTO) 100 %; WHITE BLOOD COUNT 10.6 10^3/uL (4.0-10.5)
[2019-03-11 22:30] LABS: APPEARANCE,URINE SLIGHTLY-CLOUDY; BILIRUBIN,URINE NEGATIVE (NEGATIVE); COLOR,URINE YELLOW; GLUCOSE, URINE NEGATIVE (NEGATIVE); KETONES,URINE NEGATIVE (NEGATIVE); LEUKOCYTE ESTERASE,URINE LARGE (NEGATIVE); NITRITE,URINE NEGATIVE (NEGATIVE); PROTEIN,URINE 30 mg/dL (NEGATIVE)
[2019-03-11 22:33] LABS: RED CELL DISTRIBUTION WIDTH 47.4 % (11.5-14.0)
[2019-03-11 22:51] LABS: ANISOCYTOSIS 4+; OVALOCYTES 3+; POIKILOCYTOSIS 2+; TEAR DROP CELLS 2+
[2019-03-11 22:52] LABS: PLATELET COMMENT INCREASED
[2019-03-11 22:53] LABS: MEAN CORPUSCULAR VOLUME 65 fl (80-97)
[2019-03-11 22:57] LABS: ALBUMIN 4.6 g/dL (3.5-5.0); ALKALINE PHOSPHATASE 79 U/L (38-126); ANION GAP 10 (5-19); ASPARTATE AMINO TRANSFERASE 42 U/L (14-36); BILIRUBIN,DIRECT 0.2 mg/dL (0.0-0.4); BILIRUBIN,TOTAL 1.6 mg/dL (0.2-1.3); BLOOD UREA NITROGEN 15 mg/dL (7-20); CALCIUM 9.5 mg/dL (8.4-10.2); CARBON DIOXIDE 23 mmol/L (22-30); CHLORIDE 108 mmol/L (98-107); GLUCOSE 88 mg/dL (75-110); POTASSIUM 4.2 mmol/L (3.6-5.0); TOTAL PROTEIN 8.2 g/dL (6.3-8.2)
[2019-03-12 11:08] LABS: PATH REVIEW PATHOLOGIST REVIEWED
== END 2019-03-12 03:27 | disposition left against medical advice (07) ==
LOC: ER 21:07
DX: R10.11 Right upper quadrant pain (principal); Z79.899 Other long term (current) drug therapy; Z53.20 Procedure and treatment not carried out because of patient's decision for unspecified reasons; Z87.19 Personal history of other diseases of the digestive system; Z90.49 Acquired absence of other specified parts of digestive tract
CPT/HCPCS: 36415; 85025; 81025; 80053; 81001; J3490; 99281

== ENCOUNTER → 2019-07-14 | Outpatient (CLI) | payer MEDICAID | LOC: LAB 14:51 | PROVIDERS: ATTEND Nurse Practitioner Acute Care | DX: R30.0 Dysuria (principal) | CPT/HCPCS: 87086 ==

== ENCOUNTER 2019-12-01 11:11 | Emergency (ER) | payer MEDICAID ==
--- NOTE | 2019-12-01 11:24 | ER Document Report ---
ED Medical Screen (RME) - General Chief Complaint: Pain With Urination Stated Complaint: PAINFUL URINATION,ABDOMINAL PAIN Time Seen by Provider: 12/01/19 11:16 Primary Care Provider: MAGDALENE GRAHAM NP [Primary Care Provider] - Follow up as needed Information source: Patient Notes: Patient presents complaining of dysuria for the past 3 days. Patient reports left lower pelvic pain and left flank pain as well. Patient states she had nausea and vomiting x1 episode yesterday. Patient reports chills. Patient does have a history of [place] syndrome and is concerned about possible kidney stone. I have greeted and performed a rapid initial assessment of this patient. A comprehensive ED assessment and evaluation of the patient, analysis of test results and completion of the medical decision making process will be conducted by additional ED providers. TRAVEL OUTSIDE OF THE [place] IN LAST 30 DAYS: No - Related Data Allergies/Adverse Reactions: No Known Allergies Allergy (Unverified 01/30/19 11:27) Past Medical History - Past Medical History Cardiac Medical History: Denies: Hx Coronary Artery Disease, Hx Heart Attack, Hx Hypertension Pulmonary Medical History: Denies: Hx Asthma, Hx Bronchitis, Hx COPD, Hx Pneumonia Neurological Medical History: Denies: Hx Cerebrovascular Accident, Hx Seizures Renal/ Medical History: Denies: Hx Peritoneal Dialysis GI Medical History: Reports: Hx Gastroesophageal Reflux Disease - tums. Denies: Hx Hiatal Hernia, Hx Ulcer Musculoskeltal Medical History: Denies Hx Arthritis Infectious Medical History: Denies: Hx HIV Past Surgical History: Reports: Hx Cholecystectomy, Hx Tonsillectomy - Immunizations Hx Diphtheria, Pertussis, Tetanus Vaccination: Yes Physical Exam - Vital signs Vitals: Temp Pulse Resp BP Pulse Ox 98.9 F 97 16 119/71 100 12/01/19 11:16 12/01/19 11:16 12/01/19 11:16 12/01/19 11:16 12/01/19 11:16 - Abdominal Tenderness: Tender - Left lower pelvic - Back Back: CVA tenderness - Left Course - Vital Signs Vital signs: Temp Pulse Resp BP Pulse Ox 98.9 F 97 16 119/71 100 12/01/19 11:16 12/01/19 11:16 12/01/19 11:16 12/01/19 11:16 12/01/19 11:16 Doctor's Discharge - Discharge Referrals: GRAHAM,MAGDALENE, SONOSCOPE OPERATOR [Primary Care Provider] - Follow up as needed
[2019-12-01 11:55] LABS: ABSOLUTE BASOPHILS # (AUTO) 0.1 10^3/uL (0.0-0.2); ABSOLUTE EOSINOPHILS # (AUTO) 0.1 10^3/uL (0.0-0.6); ABSOLUTE LYMPHOCYTES (AUTO) 1.8 10^3/uL (0.5-4.7); ABSOLUTE MONOCYTES (AUTO) 0.7 10^3/uL (0.1-1.4); ABSOLUTE NEUT (AUTO) 6.5 10^3/uL (1.7-8.2); BASOPHILS % (AUTO) 0.7 % (0-2); EOSINOPHILS % (AUTO) 1.4 % (0-6); HEMATOCRIT 30.9 % (36.0-47.0); HEMOGLOBIN 10.3 g/dL (12.0-15.5); LYMPHOCYTES % (AUTO) 19.2 % (13-45); MEAN CORPUSCULAR HEMOGLOBIN 19.6 pg (27.0-33.4); MEAN CORPUSCULAR HGB CONC 33.3 g/dL (32.0-36.0); MEAN CORPUSCULAR VOLUME 59 fl (80-97); MONOCYTES % (AUTO) 8.1 % (3-13); PLATELET COUNT 647 10^3/uL (150-450); RED BLOOD COUNT 5.25 10^6/uL (3.72-5.28); SEGMENTED NEUTROPHILS % (AUTO) 70.6 % (42-78); TOTAL CELLS COUNTED % (AUTO) 100 %; WHITE BLOOD COUNT 9.1 10^3/uL (4.0-10.5)
[2019-12-01 12:02] LABS: RED CELL DISTRIBUTION WIDTH 44.9 % (11.5-14.0)
[2019-12-01 12:13] LABS: ALBUMIN 4.7 g/dL (3.5-5.0); ALKALINE PHOSPHATASE 102 U/L (38-126); ANION GAP 6 (5-19); ASPARTATE AMINO TRANSFERASE 57 U/L (14-36); BILIRUBIN,TOTAL 2.5 mg/dL (0.2-1.3); BLOOD UREA NITROGEN 10 mg/dL (7-20); CALCIUM 9.6 mg/dL (8.4-10.2); CARBON DIOXIDE 27 mmol/L (22-30); CHLORIDE 105 mmol/L (98-107); GLUCOSE 93 mg/dL (75-110); POTASSIUM 3.9 mmol/L (3.6-5.0); TOTAL PROTEIN 8.5 g/dL (6.3-8.2)
[2019-12-01 12:17] LABS: ANISOCYTOSIS 4+
[2019-12-01 12:18] LABS: OVALOCYTES 3+; PLATELET COMMENT INCREASED; POIKILOCYTOSIS 3+; POLYCHROMASIA 1+
--- NOTE | 2019-12-01 13:37 | ER Document Report ---
ED GI/ - General Chief Complaint: Pain With Urination Stated Complaint: PAINFUL URINATION,ABDOMINAL PAIN Time Seen by Provider: 12/01/19 11:16 Primary Care Provider: MAGDALENE GRAHAM NP [NURSE PRACTITIONER] - Follow up in 3-5 days Notes: Patient is a 24-year-old female who presents to the emergency department with a chief complaint of dysuria. Patient states that she has had her symptoms for the past 3 days. She had a telehealth visit 2 days ago with her primary care provider and was given antibiotics. Patient states that she continues to have her symptoms. Patient is sexually active. Patient states that she is on Depo- Provera. Denies any vaginal discharge. TRAVEL OUTSIDE OF THE [place] IN LAST 30 DAYS: No - Related Data Allergies/Adverse Reactions: No Known Allergies Allergy (Verified 12/01/19 13:33) Past Medical History - General Information source: Patient - Social History Smoking Status: Never Smoker Frequency of alcohol use: None Drug Abuse: None Family History: Reviewed & Not Pertinent Patient has homicidal ideation: No - Past Medical History Cardiac Medical History: Denies: Hx Coronary Artery Disease, Hx Heart Attack, Hx Hypertension Pulmonary Medical History: Denies: Hx Asthma, Hx Bronchitis, Hx COPD, Hx Pneumonia Neurological Medical History: Denies: Hx Cerebrovascular Accident, Hx Seizures Renal/ Medical History: Denies: Hx Peritoneal Dialysis GI Medical History: Reports: Hx Gastroesophageal Reflux Disease - tums. Denies: Hx Hiatal Hernia, Hx Ulcer Musculoskeletal Medical History: Denies Hx Arthritis Infectious Medical History: Denies: Hx HIV Past Surgical History: Reports: Hx Cholecystectomy, Hx Tonsillectomy - Immunizations Hx Diphtheria, Pertussis, Tetanus Vaccination: Yes Review of Systems - Review of Systems Notes: REVIEW OF SYSTEMS: CONSTITUTIONAL : Denies recent illness. Denies recent unintentional weight loss. Denies fever, chills, or sweats. EENT: Denies eye, ear, throat, or mouth pain, discharge, or symptoms. Denies nasal or sinus congestion. CARDIOVASCULAR: Denies chest pain. RESPIRATORY: Denies shortness of breath, cough, congestion, difficulty breathing, or wheezing. GASTROINTESTINAL: Denies nausea, vomiting, and diarrhea. Denies constipation. See HPI. GENITOURINARY: See HPI. FEMALE GENITOURINARY: See HPI. MUSCULOSKELETAL: Denies neck and back pain. Denies joint pain or swelling. SKIN: Denies rash, itchiness, or lesions HEMATOLOGIC : Denies easy bruising or bleeding. LYMPHATIC: Denies swollen, painful, enlarged glands. NEUROLOGICAL: Denies no numbness or tingling denies weakness. Denies headache. Denies altered mental status. Denies alteration in speech. PSYCHIATRIC: Denies stress, anxiety, alteration in sleep patterns, or depression. All other systems reviewed and negative. Physical Exam - Vital signs Vitals: Temp Pulse Resp BP Pulse Ox 98.9 F 97 16 119/71 100 12/01/19 11:16 12/01/19 11:16 12/01/19 11:16 12/01/19 11:16 12/01/19 11:16 - Notes Notes: PHYSICAL EXAMINATION: GENERAL: Appears well, healthy, well-nourished, no acute distress. HEAD: Normocephalic, atraumatic. EYES: PERRL, conjunctiva normal, all extraocular movements intact, sclera nonicteric ENT: Moist mucous membranes. NECK: Supple, no noticeable swelling, redness, rash. Normal range of motion. LUNGS: Equal breath sounds bilaterally and clear to auscultation. No wheezes rales or rhonchi. CARDIOVASCULAR: S1-S2, regular rate, regular rhythm. Radial pulses 2+, normal. ABDOMEN: Normoactive bowel sounds. Soft, tender mid lower abdomen, no guarding, no rebound tenderness, and no masses palpated. EXTREMITIES: Normal strength and range of motion, no pitting or edema. No cyanosis. NEUROLOGICAL: Moves all extremities upon command. Strength 5/5 in all extremities. PSYCH: Normal mood, normal affect. SKIN: Warm, dry. No rash, lesions, ulcerations noted. Normal skin turgor. Course - Re-evaluation Re-evalutation: 12/01/19 14:12 Discussed with the patient the need for a pelvic exam, but the patient did not want to have a pelvic exam done at this time, due to the pain. I expressed to the patient that this would not be a thorough exam, but we are still waiting on her urinalysis to come back. We will send her urine for culture also. Gonorrhea and Chlamydia are negative. Hematology is unremarkable. Chemistries show an elevated bilirubin at 2.5, but the patient does not have any focal tenderness to the right upper quadrant. AST and ALT are both elevated.. hCG is negative. Protein is slightly elevated at 8.5. Patient reports that she does not drink enough water. States that she drinks mainly sodas. 12/01/19 15:11 Urinalysis shows a moderate blood in her urine, trace leukocytes, and nitrates in her urine. She also has some white blood cell clumps. Spoke with the patient in regards to the results. Patient states that now that she has had time to process everything, she states that she did have a "fishy odor" the other day. Based off the patient's symptoms and tenderness upon palpation to her mid abdominal area, will place the patient on doxycycline and Flagyl to treat bacterial vaginosis. She is in agreement with this plan. I do not suspect appendicitis due to no focal right lower quadrant pain on exam. Patient is non toxic in appearance. VSS. Follow-up precautions were given. Verbal discharge instructions were given to the patient. They verbalized understanding. They are stable for discharge. - Vital Signs Vital signs: Temp Pulse Resp BP Pulse Ox 98.7 F 80 16 120/70 100 12/01/19 15:34 12/01/19 15:34 12/01/19 15:34 12/01/19 15:34 12/01/19 15:34 - Laboratory Result Diagrams: 12/01/19 11:31 12/01/19 11:31 Laboratory results interpreted by me: 12/01/19 12/01/19 12/01/19 11:31 11:31 12:39 Hgb 10.3 L Hct 30.9 L MCV 59 L MCH 19.6 L RDW 44.9 H Plt Count 647 H Total Bilirubin 2.5 H AST 57 H ALT 52 H Total Protein 8.5 H Urine Protein 30 H Urine Blood MODERATE H Urine Nitrite (Reflex) POSITIVE H Urine Urobilinogen 4.0 H Leukocyte Esterase Rfl TRACE H Discharge - Discharge Clinical Impression: Pelvic inflammatory disease (PID) Urinary tract infection Qualifiers: Urinary tract infection type: acute cystitis Hematuria presence: with hematuria Qualified Code(s): N30.01 - Acute cystitis with hematuria Condition: Stable Disposition: HOME, SELF-CARE Instructions: Urinary Tract Infection ([facility]) Additional Instructions: Your are being treated for pelvic inflammatory disease. You are being started on 2 different antibiotics and you need to take these until you finish them. Please return if you have worsening pain, persistent vomiting, spike a fever greater than 101F, or have any other symptoms that are concerning to you. Please follow closely with you primary care physician or your MANAGED SERVICES CONSULTANT at your earliest ability. Continue your antibiotics for your urinary tract infection. Prescriptions: Doxycycline Hyclate 100 mg PO BID #28 tablet. Metronidazole [Flagyl 500 mg Tablet] 500 mg PO Q6H #28 tablet Ondansetron [Zofran Odt 4 mg Tablet] 1 - 2 tab PO Q4H PRN #30 tab.rapdis PRN Reason: For Nausea/Vomiting Forms: Return to Work Referrals: MAGDALENE GRAHAM, [place] [NURSE PRACTITIONER] - Follow up in 3-5 days
[2019-12-01 13:41] LABS: CHLAM PCR NOT DETECTED (NOT DETECT)
[2019-12-01 14:28] LABS: APPEARANCE,URINE SLIGHTLY-CLOUDY; BILIRUBIN,URINE NEGATIVE (NEGATIVE); COLOR,URINE AMBER; GLUCOSE, URINE NEGATIVE (NEGATIVE); KETONES,URINE NEGATIVE (NEGATIVE); PROTEIN,URINE 30 mg/dL (NEGATIVE); URINE SPECIFIC GRAVITY 1.015
[2019-12-01 15:37] VITALS: BP 120/70
== END 2019-12-01 15:34 | disposition home or self-care (01) ==
LOC: ER 11:11
DX: N30.01 Acute cystitis with hematuria (principal); N73.9 Female pelvic inflammatory disease, unspecified; R30.9 Painful micturition, unspecified; R30.0 Dysuria; R10.9 Unspecified abdominal pain
CPT/HCPCS: 36415; 80053; 81001; 84703; 85025; 87491; 87591; 99283

== ENCOUNTER 2020-04-27 20:20 | Emergency (ER) | payer MEDICAID ==
[2020-04-27] MEDS ORDERED: IBUPROFEN 600 MG TABLET PO ONE (20:52)
[2020-04-27] MEDS ORDERED: HYDROCODONE/ACETAMINOPHEN 5-325 MG TABLET PO ONE (20:52)
--- NOTE | 2020-04-27 20:55 | ER Document Report ---
ED Extremity Problem, Lower - General Chief Complaint: Foot Injury Stated Complaint: RIGHT FOOT/ANKLE INJURY Time Seen by Provider: 04/27/20 20:50 Notes: CHIEF COMPLAINT: Right foot injury HPI: 25-year-old female presenting to the emergency department for evaluation of right foot injury. Patient slipped and inverted the foot going down stairs. Cannot weight-bear secondary to pain. Patient does report some numbness or tingling in the toes. Reports some soreness to the right lower back. ROS: See HPI - all other systems were reviewed and are otherwise negative Constitutional: no fever Eyes: no drainage, no blurred vision ENT: no runny nose, no sore throat Cardiovascular: no chest pain Resp: no SOB, no cough GI: no vomiting, no diarrhea, no abdominal pain : no dysuria Integumentary: no rash Allergy: no hives Musculoskeletal: Positive extremity pain or swelling Neurological: no numbness/tingling, no weakness MEDICATIONS: I agree with the patient medications as charted by the RN. ALLERGIES: I agree with the allergies as charted by the RN. PAST MEDICAL HISTORY/PAST SURGICAL HISTORY: Reviewed and agree as charted by RN. SOCIAL HISTORY: Reviewed and agree as charted by RN. FAMILY HISTORY: No significant familial comorbid conditions directly related to patient complaint EXAM: Reviewed vital signs as charted by RN. CONSTITUTIONAL: Alert and oriented and responds appropriately to questions. Well-appearing; well-nourished HEAD: Normocephalic; atraumatic EYES: Conjunctivae clear, sclerae non-icteric ENT: normal nose; no rhinorrhea; moist mucous membranes NECK: Supple without meningismus CARD: symmetric distal pulses RESP: Normal chest excursion without splinting or tachypnea ABD/GI: non-distended BACK: The back appears normal and is non-tender to palpation directly over the lumbar and thoracic spine mild tenderness in the right lateral lower musculature of the lumbar back, there is no CVA tenderness EXT: Some limited flexion extension of the right foot at the ankle secondary to pain. There is mild tenderness over the proximal fibular region of the right lower extremity on palpation. There is no tenderness on medial or lateral malleolus palpation. There is tenderness over the entire dorsum of the right foot with slight soft tissue swelling noted. Dorsalis pedis and posterior tibial pulses are present in the right foot and ankle. Sensation is intact in the toes with capillary refill less than 3 seconds SKIN: Normal color for age and race; warm; dry; good turgor; no acute lesions noted NEURO: Moves all extremities equally; Motor and sensory function intact PSYCH: The patient's mood and manner are appropriate. Grooming and personal hygiene are appropriate. MDM: 25-year-old female injury to the proximal fibular region of the right lower extremity as well as over the right foot will obtain x-ray imaging for fracture TRAVEL OUTSIDE OF THE [place] IN LAST 30 DAYS: No - Related Data Allergies/Adverse Reactions: No Known Allergies Allergy (Verified 12/01/19 13:33) Past Medical History - Social History Smoking Status: Unknown if Ever Smoked Family History: Reviewed & Not Pertinent - Past Medical History Cardiac Medical History: Denies: Hx Coronary Artery Disease, Hx Heart Attack, Hx Hypertension Pulmonary Medical History: Denies: Hx Asthma, Hx Bronchitis, Hx COPD, Hx Pneumonia Neurological Medical History: Denies: Hx Cerebrovascular Accident, Hx Seizures Renal/ Medical History: Denies: Hx Peritoneal Dialysis GI Medical History: Reports: Hx Gastroesophageal Reflux Disease - tums. Denies: Hx Hiatal Hernia, Hx Ulcer Musculoskeletal Medical History: Denies Hx Arthritis Infectious Medical History: Denies: Hx HIV Past Surgical History: Reports: Hx Cholecystectomy, Hx Tonsillectomy - Immunizations Hx Diphtheria, Pertussis, Tetanus Vaccination: Yes Physical Exam - Vital signs Vitals: Temp Pulse Resp BP Pulse Ox 98.2 F 86 20 105/61 98 04/27/20 20:57 04/27/20 20:57 04/27/20 20:57 04/27/20 20:57 04/27/20 20:57 Course - Re-evaluation Re-evalutation: 04/27/20 21:19 Imaging on my review does not show evidence of a fracture in the proximal fibular area or over the foot. Place the patient in a postop shoe, crutches, pain management orthopedic referral - Vital Signs Vital signs: Temp Pulse Resp BP Pulse Ox 98.2 F 86 20 105/61 98 04/27/20 20:57 04/27/20 20:57 04/27/20 20:57 04/27/20 20:57 04/27/20 20:57 - Laboratory Results Critical Laboratory Results Reviewed: No Critical Results - Radiology Results Critical Radiology Results Reviewed: No Critical Results Discharge - Discharge Clinical Impression: Fall down stairs Qualifiers: Encounter type: initial encounter Qualified Code(s): W10.8XXA - Fall (on) (from) other stairs and steps, initial encounter Sprain of foot, right Qualifiers: Encounter type: initial encounter Qualified Code(s): S93.601A - Unspecified sprain of right foot, initial encounter Condition: Stable Disposition: HOME, SELF-CARE Instructions: Sprain ([facility]), Oral Narcotic Medication ([facility]), Use of Crutches ([facility]) Additional Instructions: Your imaging studies tonight did not seem to show evidence of a fracture in the foot or lower leg. You likely have a sprain. Use the postop shoe for comfort for 3 to 5 days. Use the crutches weightbearing as tolerated. Pain medications as prescribed no driving if taking narcotics for pain. Follow-up with orthopedics for further evaluation and treatment if you continue with discomfort in the right foot or lower leg. Call for appointment. Make sure you are icing and elevating the foot is much as possible Prescriptions: Tramadol HCl [Ultram 50 mg Tablet] 50 mg PO Q6HP PRN #12 tab PRN Reason: Ibuprofen [Motrin 600 Mg Tablet] 600 mg PO TID #15 tablet Referrals: RADAMES BREWER MD [ACTIVE STAFF] - Follow up as needed
[2020-04-27 20:58] VITALS: BP 105/61
--- NOTE | 2020-04-27 21:34 | RADIOLOGY REPORT (SQ) ---
EXAM DESCRIPTION: FOOT RIGHT COMPLETE RadLex: XR FOOT 3 OR MORE VIEWS Views: 3 CLINICAL HISTORY: 25 years Female; fall; COMPARISON: None. FINDINGS: Negative for acute fracture, dislocation, or radiopaque foreign body. IMPRESSION: 1. No acute findings.
--- NOTE | 2020-04-27 21:40 | RADIOLOGY REPORT (SQ) ---
EXAM DESCRIPTION: TIBIA FIBULA RIGHT RadLex: XR TIBIA FIBULA 2 VIEWS Views: 2 CLINICAL HISTORY: 25 years Female; fall prox fib pain; COMPARISON: None. FINDINGS: Negative for acute fracture, dislocation, or radiopaque foreign body. IMPRESSION: 1. No acute findings.
== END 2020-04-27 22:12 | disposition home or self-care (01) ==
LOC: ER 20:20
DX: S93.601A Unspecified sprain of right foot, initial encounter (principal); S89.91XA Unspecified injury of right lower leg, initial encounter; W10.9XXA Fall (on) (from) unspecified stairs and steps, initial encounter
CPT/HCPCS: 99284; 73630; 73590; J3490